=== PATIENT | female | born 1985 | race Asian ===

== ENCOUNTER 2022-02-13 10:22 | Observation (INO) | payer OTHER ==
[~2022-02-13] VITALS: Ht 165.1 cm; Wt 73.5 kg
== END 2022-02-13 15:15 | disposition home or self-care (01) ==
LOC: SPU 10:22
PROVIDERS: ADMIT Specialist; ATTEND Specialist
DX: O36.8330 Maternal care for abnormalities of the fetal heart rate or rhythm, third trimester, not applicable or unspecified (principal); O40.3XX0 Polyhydramnios, third trimester, not applicable or unspecified; Z3A.39 39 weeks gestation of pregnancy
CPT/HCPCS: 59025; G0378

== ENCOUNTER 2022-02-25 09:48 | Inpatient (IN) | payer OTHER ==
[~2022-02-25] VITALS: Ht 165.1 cm; Wt 63.5 kg
[~2022-02-25 09:48] MED LIST: PERC10 PO
[2022-02-25 09:58] VITALS: BP_SYST 159
--- NOTE | 2022-02-25 09:58 | NUR ---
Patient to ER bed 8 for evaluation. Side rails up. Report given to Alexandria LINO.
--- NOTE | 2022-02-25 09:59 | NUR ---
Pt placed on 2 L nasal cannula; oxygenation improving.
--- NOTE | 2022-02-25 10:30 | NUR ---
LATE ENTRY: PT COMES TO ER, BROUGHT IN BY FROM HOME FOR C/O INCREASINGLY WORSE SOB X 1 DAY. PT REPORTS BEING POST 7 DAYS, 1ST BABY GIRL-NORMAL VAGINAL CHILDBIRTH WITH NO COMPLICATIONS. G1-P1. PT SLIGHTLY TACHYPNIC AT 26 BREATHS/MIN. LS-DIMINISHED DUGLAS BASES, ON 02-2L VIA NC @96%. DENIES CP. SKIN W/D/I, DUGLAS LOWER EXTREMITIES WITH 3+ PITTING EDEMA.
--- NOTE | 2022-02-25 10:32 | NUR ---
DR KEEN IN ROOM FOR EXAM
[2022-02-25] MEDS ORDERED: NACL 0.9% 2,000 ML IV ONE (10:45)
[2022-02-25] MEDS ORDERED: cefTRIAXone 1 GM IVPB PREMIX 50 ML IV ONE (10:45)
[2022-02-25 11:04] LABS: BASOPHILS # (AUTO) 0.1 K/uL (0.0-0.2); BASOPHILS % (AUTO) 0.5 % (0.0-2.0); EOSINOPHILS # (AUTO) 0.1 K/uL (0.0-0.4); EOSINOPHILS % (AUTO) 0.4 % (0.0-4.0); LYMPHOCYTES # (AUTO) 0.8 K/uL (1.0-5.5); MEAN CORPUSCULAR HEMOGLOBIN 27 pg (27-31); MEAN CORPUSCULAR HGB CONC 33 % (32-36); MEAN CORPUSCULAR VOLUME 82 fL (79.0-98.0); MONOCYTES # (AUTO) 0.7 K/uL (0.0-1.0); MONOCYTES % (AUTO) 5.2 % (1.7-9.3); NEUTROPHILS # (AUTO) 11.6 K/uL (1.8-7.7); NEUTROPHILS % (AUTO) 87.9 % (40.0-70.0); PLATELET COUNT (AUTO) 329 K/uL (130-430); RED BLOOD CELL COUNT(AUTO) 2.55 MIL/uL (4.2-6.2); WHITE BLOOD COUNT (AUTO) 13.2 K/uL (4.8-10.8)
[2022-02-25 11:12] LABS: HEMATOCRIT 20.9 % (36-48)
[2022-02-25 11:17] LABS: ALBUMIN 2.3 g/dL (3.4-4.8); CALCIUM 8.2 mg/dL (8.4-11.0); CREATININE 0.73 mg/dL (0.55-1.30); TOTAL BILIRUBIN 0.6 mg/dL (0.0-1.0)
--- NOTE | 2022-02-25 11:36 | NUR ---
PT TO CT SCAN VIA [facility]
--- NOTE | 2022-02-25 12:01 | NUR ---
PT'S AT BEDSIDE. PT DRINKING FLUIDS WELL. IV ANTIBIOTICS INFUSING WELL VIA PUMP.
[2022-02-25] MEDS ORDERED: ENALAPRILAT DIHYDRATE 1.25 MG/ML VIAL IVP ONE (12:15)
[2022-02-25] MEDS ORDERED: FER300L PO (12:57)
[2022-02-25] MEDS ORDERED: CEPH250C PO (12:57)
[2022-02-25] MEDS ORDERED: DOCU-144 PO (12:57)
--- NOTE | 2022-02-25 14:26 | NUR ---
PT RESTING WITH EYES CLOSED, IN NAD. VSS.
[2022-02-25] MEDS ORDERED: ACETAMINOPHEN 325 MG TABLET PO PRN (14:45)
[2022-02-25] MEDS ORDERED: DOCUSATE SODIUM 100 MG CAPSULE PO PRN (14:45)
[2022-02-25] MEDS ORDERED: ONDANSETRON HCL 4 MG/2 ML VIAL IVP PRN (14:45)
[2022-02-25] MEDS ORDERED: MUPIROCIN 2% TOPICAL OINTMENT 22 GM NS PRN (14:45)
[2022-02-25] MEDS ORDERED: MORPHINE 2 MG/ML INJ. SYRINGE IVP PRN ×2 (14:45)
[2022-02-25] MEDS ORDERED: MAGNESIUM SULFATE 50 ML IV PRN (14:45)
[2022-02-25] MEDS ORDERED: ZOLPIDEM TARTRATE 5 MG TABLET PO PRN (14:45)
[2022-02-25] MEDS ORDERED: NACL 0.9% 1,000 ML IV SCH (14:45)
[2022-02-25] MEDS ORDERED: HYDROCHLOROTHIAZIDE 25 MG TABLET (HCTZ) PO ONE (15:00)
--- NOTE | 2022-02-25 16:24 | NUR ---
PT SITTING UP IN BED, IN NAD. FOOD AND FLUIDS OFFERED, REFUSES AT THIS TIME.
--- NOTE | 2022-02-25 18:34 | NUR ---
REPORT GIVEN TO ANÍBAL LINO, UPDATED ON VITALS, STATUS, PT STABLE FOR TRANSFER.
[2022-02-25] MEDS: MICAFUNGIN SODIUM 100 MG in NS 100 ML IV SCH (19:00)
--- NOTE | 2022-02-25 19:05 | NUR ---
Patient will be admitted to care of DR SALAZAR. Admitted to unit. Will go to room . Belongings list completed. Complete and up to date summary report printed. SBAR report to be given at bedside with opportunity for questions.
--- NOTE | 2022-02-25 19:24 | NUR ---
OPENING NOTE: Received patient stable, alert. oriented, verbally responsive. Will endorse to concrete conveyor operator nurse.
[2022-02-25 20:00] VITALS: BP_SYST 145
[2022-02-25] MEDS: AZITHROMYCIN 500 MG in NS 250 ML IV SCH ×2 (20:00→23:31)
[2022-02-25] MEDS ORDERED: METOPROLOL TARTRATE 25 MG TABLET PO SCH (21:00)
[2022-02-25] MEDS ORDERED: AZITHROMYCIN 500 MG/VIAL (ZITHROMAX) IV ONE (21:22)
[2022-02-25 22:30] LABS: TOTAL IRON BIND. CAPACITY 202 ug/dL (250-450)
--- NOTE | 2022-02-25 23:03 | NUR ---
GAVE REQUEST FOR MICAFUNGIN AND ZITHROMAX (BOTH IVPB) TO TWO STAFF W PHARM ACCESS. BOTH UNABLE TO RETURN MEDS.
[2022-02-25] MEDS: DOCUSATE SODIUM 100 MG CAPSULE PO SCH (23:32)
[2022-02-26] VITALS (13 sets, daily range): BP systolic 102–159
--- NOTE | 2022-02-26 01:59 | NUR ---
CONSULTATION PAGED/CALLED Reason for Consultation: PLEURAL EFFUSION Person Who was Notified: ZOEY Consulting Physician: RUCHI Warper Tender Specialty: Ordering Physician: SHERRY
--- NOTE | 2022-02-26 02:01 | NUR ---
CONSULTATION PAGED/CALLED Reason for Consultation: PLeural EFFUSION Person Who was Notified:BILLIE Consulting Physician: TEMO Real Estate Management Specialist Specialty: Ordering Physician: SHERRY
--- NOTE | 2022-02-26 08:10 | NUR ---
RN OPENING NOTE REPORT WAS ENDORSED BY NIGHT NURSE. PATIENT IS AWAKE AND ALERT SITTING UP IN BED. PATIENT SHOWS NO SIGNS OF ANY DISTRESS, BREATHING IS EQUAL AND NON LABORED, IN BED. PATIENT AND SPOUSE EDUCATED NUTRITION DIRECTOR LIGHT FOR ASSISTANCE. CALL LIGHT IS WITH HER.
[2022-02-26] MEDS ORDERED: FUROSEMIDE 40 MG/4 ML VIAL IVP ONE (08:30)
[2022-02-26] MEDS: DOCUSATE SODIUM 100 MG CAPSULE PO SCH ×2 (08:40→20:34)
[2022-02-26] MEDS: FERROUS SULFATE 300 MG/5 ML UDC PO SCH ×2 (08:42→20:35)
--- NOTE | 2022-02-26 08:50 | NUR ---
medication patients scheduled medication given per order. patient is awake and alert sitting up in bed. no signs of any distress, patient is on nasal cannula 2l is at bedside. educated operations analyst light for assistance. no other needs at this time.
[2022-02-26 08:55] LABS: BASOPHILS % (AUTO) 0.4 % (0.0-2.0); EOSINOPHILS # (AUTO) 0.2 K/uL (0.0-0.4); EOSINOPHILS % (AUTO) 1.1 % (0.0-4.0); HEMATOCRIT 22.6 % (36-48); HEMOGLOBIN 7.5 g/dL (12.0-16.0); LYMPHOCYTES # (AUTO) 0.8 K/uL (1.0-5.5); LYMPHOCYTES % (AUTO) 5.6 % (20.5-51.5); MEAN CORPUSCULAR HEMOGLOBIN 27 pg (27-31); MEAN CORPUSCULAR HGB CONC 33 % (32-36); MEAN CORPUSCULAR VOLUME 82 fL (79.0-98.0); MONOCYTES # (AUTO) 0.7 K/uL (0.0-1.0); NEUTROPHILS # (AUTO) 12.2 K/uL (1.8-7.7); NEUTROPHILS % (AUTO) 87.9 % (40.0-70.0); PLATELET COUNT (AUTO) 450 K/uL (130-430); RED BLOOD CELL COUNT(AUTO) 2.76 MIL/uL (4.2-6.2); RED CELL DISTRIBUTION WIDTH 15.1 % (9.0-15.0); WHITE BLOOD COUNT (AUTO) 13.9 K/uL (4.8-10.8)
[2022-02-26 08:56] LABS: CALCIUM 8.4 mg/dL (8.4-11.0); CREATININE 0.68 mg/dL (0.55-1.30); POTASSIUM 3.3 mmol/L (3.5-5.1)
[2022-02-26] MEDS ORDERED: FERROUS SULFATE 300 MG/5 ML UDC PO SCH (09:00)
[2022-02-26 09:02] LABS: ALBUMIN 2.2 g/dL (3.4-4.8); TOTAL BILIRUBIN 0.4 mg/dL (0.0-1.0)
--- NOTE | 2022-02-26 09:04 | NUR ---
CONSULTATION PAGED/CALLED Reason for Consultation: [] POST Person Who was Notified: [] DR HE Consulting Physician: [] DR Jt HE Railroader Specialty: [] OBGYN Ordering Physician: [] DR POWELL
[2022-02-26] MEDS ORDERED: DIATR MEGLU/DIATRIZ SOD 30 ML SOLUTION PO ONE (09:12)
[2022-02-26] MEDS ORDERED: iohexoL 350 mgI/mL, 100 ML INFUS..BTL IV ONE (11:46)
--- NOTE | 2022-02-26 12:20 | NUR ---
transfer to icu report was endorsed to ICU nurse. patient transferred to ICU 7 on nasal cannula at 2 liters. all belongings are with her. is at bed side and aware of transfer. Dr. cardoza was at bed orders to stop IV fluid, stop ct scan. transfer orders to be placed by him. patient has no other needs at this time.
[2022-02-26] MEDS: FUROSEMIDE 40 MG/4 ML VIAL IVP SCH ×3 (13:10→23:53)
[2022-02-26] MEDS: CARVEDILOL 12.5 MG TABLET (COREG) PO SCH ×2 (13:11→20:35)
--- NOTE | 2022-02-26 14:37 | NUR ---
Patient referred to [facility] [phone] /FAX [phone] the request of Dr Hennessy. Accepting MD Dr Dipak Campo and accepting hospitalist Dr Nicki Bahena [phone] . Patient also referred to [facility] [phone]/FAX [phone] at the request of Dr Hennessy. Accepting MD Elida Alfaro.
[2022-02-26] MEDS: POTASSIUM CHLORIDE 20 MEQ TAB.PRT.SR PO PRN (15:12)
[2022-02-26] MEDS: cefTRIAXone 1 GM in D5W 50 ML IV SCH (15:13)
[2022-02-26 16:31] LABS: C-REACTIVE PROTEIN QUANT 17.4 mg/dL (0-0.5)
--- NOTE | 2022-02-26 17:08 | NUR ---
[id number] KLINE OF TROP 144, NO NEW ORDERS RECEIVED
[2022-02-26] MEDS: MICAFUNGIN SODIUM 100 MG in NS 100 ML IV SCH (18:19)
[2022-02-26] MEDS: AZITHROMYCIN 500 MG in NS 250 ML IV SCH (20:34)
[2022-02-27] VITALS (17 sets, daily range): BP systolic 88–118
--- NOTE | 2022-02-27 00:30 | NUR ---
[facility] transfer center called spoke to Isamar and updated her regarding patients condition, as of the moment no bed available yet, will call follow up again in am if bed is ready.
--- NOTE | 2022-02-27 06:30 | NUR ---
IS given and instructed patient to used as often as she can was avail to reach 1000ml with good results remains on 2L NC. still tachypneic RR-21-30 sats,95-97%
[2022-02-27] MEDS: FUROSEMIDE 40 MG/4 ML VIAL IVP SCH ×2 (06:51→18:43)
[2022-02-27 07:43] LABS: HEMATOCRIT 22.1 % (36-48); HEMOGLOBIN 7.4 g/dL (12.0-16.0); MEAN CORPUSCULAR HEMOGLOBIN 27 pg (27-31); MEAN CORPUSCULAR HGB CONC 33 % (32-36); MEAN CORPUSCULAR VOLUME 81 fL (79.0-98.0); PLATELET COUNT (AUTO) 460 K/uL (130-430); RED BLOOD CELL COUNT(AUTO) 2.72 MIL/uL (4.2-6.2); RED CELL DISTRIBUTION WIDTH 14.9 % (9.0-15.0); WHITE BLOOD COUNT (AUTO) 11.4 K/uL (4.8-10.8)
[2022-02-27 08:01] LABS: CREATININE 0.86 mg/dL (0.55-1.30); POTASSIUM 3.2 mmol/L (3.5-5.1)
[2022-02-27 08:06] LABS: FOLATE (FOLIC ACID) 16.2 ng/mL (>3.0)
[2022-02-27] MEDS: FERROUS SULFATE 300 MG/5 ML UDC PO SCH ×2 (09:49→20:47)
[2022-02-27] MEDS: CARVEDILOL 12.5 MG TABLET (COREG) PO SCH ×2 (09:51→20:47)
[2022-02-27] MEDS: SPIRONOLACTONE 25 MG TABLET (ALDACTONE) PO SCH ×2 (09:52→20:47)
[2022-02-27] MEDS: DOCUSATE SODIUM 100 MG CAPSULE PO SCH ×2 (09:52→20:47)
[2022-02-27] MEDS: POTASSIUM CHLORIDE 20 MEQ TAB.PRT.SR PO PRN (11:23)
[2022-02-27] MEDS: cefTRIAXone 1 GM in D5W 50 ML IV SCH (12:30)
--- NOTE | 2022-02-27 14:15 | NUR ---
0800- VSS, EDUCATION PROVIDED ON POC. 1200- PT TOLERATED PO MEDICATION WELL, ALL QUESTIONS ANSWERED 1415- TRANSFERRED TO 103A
--- NOTE | 2022-02-27 14:21 | NUR ---
PER REPORT FROM NILES LINO. PT REQUESTING FOR IBUPROFEN 600 MG Q6H PRN FOR PAIN. ORDERS RECEIVED.
[2022-02-27] MEDS ORDERED: IBUPROFEN 600 MG TABLET PO PRN (14:30)
[2022-02-27 14:48] LABS: BAND % (MANUAL) 1 % (0-6); BASOPHILS % (MANUAL) 0 % (0-2); EOSINOPHILS % (MANUAL) 1 % (0-7); LYMPHOCYTES % (MANUAL) 12 % (20-46); METAMYELOCYTES % 1 % (0-0); MONOCYTES % (MANUAL) 7 % (0-11)
[2022-02-27] MEDS: MICAFUNGIN SODIUM 100 MG in NS 100 ML IV SCH (18:44)
--- NOTE | 2022-02-27 18:45 | NUR ---
1700- REPORTED LABS TO DR SANCHEZ. NO NEW ORDERS, NEXT LABS TOMORROW.NO POTASSIUM OR MAG REPLACEMENT AFTER THIS REPORT. CREATININE 2.41 FROM 2.53. WILL MONITOR. 1700- MIRALAX GIVEN PO. NO BM IN PAST 5DAYS. ENCOURAGING PO INTAKE TOLERATED. 1800- TOTAL UOP ON SHIFT 880CC. CALLED DR SANCHEZ AND ASKED ABOUT ADDITIONAL ORDERS FOR 25% ALBUMIN ON EMAR. POC IS TO NOT GIVE THESE ADDITIONAL DOSES OF ALBUMIN SINCE PATIENT RECEIVED 200CC OF 25% ALBUMIN TODAY. CLARIFIED ORDERS FOR URINE SODIUM AND URINE CREATININE, WILL D/C 24 URINE CLEARANCE. PATIENT W POOR APPETITE. ORDERED SOUP FOR HIM 184- NO SOUP AVAILABLE, PATIENT HAVING JELLO AT THIS TIME.
[2022-02-27] MEDS: AZITHROMYCIN 500 MG in NS 250 ML IV SCH (20:46)
[2022-02-28] VITALS: BP_SYST 105
[2022-02-28] MEDS: FUROSEMIDE 40 MG/4 ML VIAL IVP SCH ×2 (06:16→18:31)
[2022-02-28 06:36] LABS: BASOPHILS # (AUTO) 0.1 K/uL (0.0-0.2); BASOPHILS % (AUTO) 0.5 % (0.0-2.0); EOSINOPHILS # (AUTO) 0.3 K/uL (0.0-0.4); EOSINOPHILS % (AUTO) 2.5 % (0.0-4.0); HEMATOCRIT 22.3 % (36-48); HEMOGLOBIN 7.4 g/dL (12.0-16.0); LYMPHOCYTES % (AUTO) 15.6 % (20.5-51.5); MEAN CORPUSCULAR HEMOGLOBIN 27 pg (27-31); MEAN CORPUSCULAR HGB CONC 33 % (32-36); MEAN CORPUSCULAR VOLUME 82 fL (79.0-98.0); MONOCYTES # (AUTO) 1.1 K/uL (0.0-1.0); MONOCYTES % (AUTO) 8.3 % (1.7-9.3); NEUTROPHILS # (AUTO) 9.3 K/uL (1.8-7.7); NEUTROPHILS % (AUTO) 73.1 % (40.0-70.0); PLATELET COUNT (AUTO) 527 K/uL (130-430); RED BLOOD CELL COUNT(AUTO) 2.73 MIL/uL (4.2-6.2); RED CELL DISTRIBUTION WIDTH 15.1 % (9.0-15.0)
[2022-02-28 06:52] LABS: INR 0.9 (0.8-1.2); PROTHROMBIN TIME 9.6 SECS (9.5-12.5)
[2022-02-28 07:07] LABS: ALBUMIN 2.2 g/dL (3.4-4.8); CALCIUM 8.3 mg/dL (8.4-11.0); CREATININE 0.74 mg/dL (0.55-1.30); POTASSIUM 3.5 mmol/L (3.5-5.1); TOTAL BILIRUBIN 0.3 mg/dL (0.0-1.0)
--- NOTE | 2022-02-28 08:15 | NUR ---
INITIAL ROUNDS Received pt AAOx4, no s/s resp distress, no c/o pain or discomfort. Plan of care for the day reviewed with pt-pt verbalized her understanding. Pain management, disease process, skin and safety discussed-teach back done. Dr. Leblanc now at bedside. Call light within reach.
[2022-02-28 09:06] VITALS: BP_SYST 128
[2022-02-28] MEDS: CARVEDILOL 12.5 MG TABLET (COREG) PO SCH ×2 (09:39→21:37)
[2022-02-28] MEDS: FERROUS SULFATE 300 MG/5 ML UDC PO SCH ×2 (09:39→21:37)
[2022-02-28] MEDS: DOCUSATE SODIUM 100 MG CAPSULE PO SCH ×2 (09:39→21:36)
[2022-02-28] MEDS: SPIRONOLACTONE 25 MG TABLET (ALDACTONE) PO SCH ×2 (09:39→21:37)
[2022-02-28] MEDS: cefTRIAXone 1 GM in D5W 50 ML IV SCH (11:53)
[2022-02-28 13:02] LABS: WHITE BLOOD COUNT (AUTO) 12.7 K/uL (4.8-10.8)
--- NOTE | 2022-02-28 18:35 | NUR ---
ROUNDS PATIENT IN BED, VITALS STABLE, DENIES BOB AT THIS TIME. FAMILY MEMBERS AT THE BEDSIDE. ASSESSMENT ROLLE AND DOCUMENTED. SEE FLOWSHEET. NEEDS ATTENDED TO. CALL LIGHT PLACED WITHIN REACH.
--- NOTE | 2022-02-28 19:05 | NUR ---
CLOSING NOTE Pt sitting up in bed visiting with her mother. No s/s resp distress, no c/o pain or discomfort. Patient given cup of ice per request, needs met, call light within reach.
[2022-02-28 20:00] VITALS: BP_SYST 113
[2022-03-01] VITALS: BP_SYST 117
--- NOTE | 2022-03-01 00:17 | NUR ---
PATIENT RESTING: Patient resting quietly. No acute distress noted. Vital signs within normal range.
[2022-03-01] MEDS: FUROSEMIDE 40 MG/4 ML VIAL IVP SCH (06:39)
[2022-03-01 06:50] LABS: BASOPHILS % (AUTO) 0.3 % (0.0-2.0); EOSINOPHILS # (AUTO) 0.4 K/uL (0.0-0.4); EOSINOPHILS % (AUTO) 3.3 % (0.0-4.0); HEMATOCRIT 23.2 % (36-48); HEMOGLOBIN 7.7 g/dL (12.0-16.0); LYMPHOCYTES # (AUTO) 2.5 K/uL (1.0-5.5); MEAN CORPUSCULAR HEMOGLOBIN 27 pg (27-31); MEAN CORPUSCULAR HGB CONC 33 % (32-36); MEAN CORPUSCULAR VOLUME 81 fL (79.0-98.0); MONOCYTES # (AUTO) 1.1 K/uL (0.0-1.0); MONOCYTES % (AUTO) 8.3 % (1.7-9.3); NEUTROPHILS # (AUTO) 9.6 K/uL (1.8-7.7); NEUTROPHILS % (AUTO) 70.1 % (40.0-70.0); PLATELET COUNT (AUTO) 614 K/uL (130-430); RED BLOOD CELL COUNT(AUTO) 2.87 MIL/uL (4.2-6.2); RED CELL DISTRIBUTION WIDTH 15.1 % (9.0-15.0); WHITE BLOOD COUNT (AUTO) 13.7 K/uL (4.8-10.8)
[2022-03-01 06:54] LABS: CALCIUM 8.7 mg/dL (8.4-11.0); CREATININE 0.85 mg/dL (0.55-1.30); POTASSIUM 3.9 mmol/L (3.5-5.1)
--- NOTE | 2022-03-01 06:55 | NUR ---
CLOSING NOTES PATIENT AWAKE, NO COMPLAINTS AT THIS TIME. ALL NEEDS ATTENDED TO. CALL LIGHT PLACED WITHIN REACH.
--- NOTE | 2022-03-01 07:15 | NUR ---
received report from endorsing night guard RN for continuation of care, patient lying on bed, no signs of acute distress noted at this time, checked patient vital signs blood pressure 110/66. heart rate 83 , oxygen saturation 97, temperature 97.4. will continue to monitor.
[2022-03-01 08:00] VITALS: BP_SYST 119
[2022-03-01] MEDS: CARVEDILOL 12.5 MG TABLET (COREG) PO SCH ×2 (09:00→20:42)
[2022-03-01] MEDS: DOCUSATE SODIUM 100 MG CAPSULE PO SCH ×2 (09:33→20:40)
[2022-03-01] MEDS: FERROUS SULFATE 300 MG/5 ML UDC PO SCH ×2 (09:33→20:38)
[2022-03-01] MEDS: SPIRONOLACTONE 25 MG TABLET (ALDACTONE) PO SCH ×2 (09:34→20:40)
[2022-03-01] MEDS: cefTRIAXone 1 GM in D5W 50 ML IV SCH (11:21)
[2022-03-01 12:00] VITALS: BP_SYST 90
[2022-03-01 15:06] LABS: CRYPTOCOCCUS AG, SERUM Negative (Negative)
--- NOTE | 2022-03-01 15:31 | NUR ---
Dietitian Recommendations * Continue w/ current Cardiac diet Please refer to Nutrition Assessment for details. CRYSTAL DENNEY Addendum: 03/01/22 at [address] Amended: Links added.
[2022-03-01 16:00] VITALS: BP_SYST 113
[2022-03-01 20:00] VITALS: BP_SYST 100
[2022-03-02 06:12] LABS: BASOPHILS # (AUTO) 0.1 K/uL (0.0-0.2); BASOPHILS % (AUTO) 0.6 % (0.0-2.0); EOSINOPHILS # (AUTO) 0.5 K/uL (0.0-0.4); EOSINOPHILS % (AUTO) 3.8 % (0.0-4.0); HEMATOCRIT 25.1 % (36-48); HEMOGLOBIN 8.3 g/dL (12.0-16.0); LYMPHOCYTES # (AUTO) 2.2 K/uL (1.0-5.5); LYMPHOCYTES % (AUTO) 15.3 % (20.5-51.5); MEAN CORPUSCULAR HEMOGLOBIN 27 pg (27-31); MEAN CORPUSCULAR HGB CONC 33 % (32-36); MEAN CORPUSCULAR VOLUME 81 fL (79.0-98.0); MONOCYTES # (AUTO) 1.1 K/uL (0.0-1.0); MONOCYTES % (AUTO) 7.9 % (1.7-9.3); NEUTROPHILS # (AUTO) 10.5 K/uL (1.8-7.7); NEUTROPHILS % (AUTO) 72.4 % (40.0-70.0); PLATELET COUNT (AUTO) 710 K/uL (130-430); RED BLOOD CELL COUNT(AUTO) 3.11 MIL/uL (4.2-6.2); RED CELL DISTRIBUTION WIDTH 15.1 % (9.0-15.0); WHITE BLOOD COUNT (AUTO) 14.4 K/uL (4.8-10.8)
--- NOTE | 2022-03-02 07:18 | NUR ---
received report from endorsing night shift manager RN for continuation of care, patient lying on bed, checked vital signs blood pressure 108/66, heart rate 99, oxygen saturation 99 and temperature 97.6, no signs of acute distress noted at this time, will continue to monitor.
[2022-03-02 07:45] LABS: CALCIUM 9.3 mg/dL (8.4-11.0); CREATININE 0.74 mg/dL (0.55-1.30); POTASSIUM 3.9 mmol/L (3.5-5.1)
[2022-03-02 08:00] VITALS: BP_SYST 108
[2022-03-02] MEDS: DOCUSATE SODIUM 100 MG CAPSULE PO SCH (08:46)
[2022-03-02] MEDS: FERROUS SULFATE 300 MG/5 ML UDC PO SCH (08:46)
[2022-03-02] MEDS: SPIRONOLACTONE 25 MG TABLET (ALDACTONE) PO SCH (08:48)
[2022-03-02] MEDS: CARVEDILOL 12.5 MG TABLET (COREG) PO SCH (08:49)
[2022-03-02] MEDS ORDERED: FUROSEMIDE 40 MG TABLET PO SCH (09:00)
--- NOTE | 2022-03-02 09:54 | NUR ---
received a call from [facility] and spoked to Syed, that there is available bed, informed and dependency case manager
[2022-03-02] MEDS ORDERED: FURO-150 PO (10:05)
[2022-03-02] MEDS ORDERED: METO25TA6 PO (10:05)
[2022-03-02] MEDS: cefTRIAXone 1 GM in D5W 50 ML IV SCH (10:42)
[2022-03-02 11:39] VITALS: BP_SYST 108
--- NOTE | 2022-03-02 14:30 | NUR ---
D/C Patient Patient given medication reconciliation form and D/C instructions. Exit Care provided. Patient verbalized understanding. MD discussed with patient the results and treatment provided. Ambulatory with steady gait for discharge to home. Patient in stable condition, ID band removed. IV catheter removed, intact and dressing applied, no active bleeding. no signs of acute distress, no complain of pain. Patient educated on pain management. All belongings sent with patient.accompanied by Ronnie,advised to follow up with primary care provider and clipper operator.
== END 2022-03-02 14:30 | disposition home or self-care (01) | DRG 871 ==
LOC: SED 09:48 → SMU 13:36 → STU 21:09 → SMU 23:26 → SIC 02-26 09:37 → STU 02-27 15:46
PROVIDERS: ADMIT General Practice; ATTEND General Practice
DX: A41.9 Sepsis, unspecified organism (principal); J18.9 Pneumonia, unspecified organism; J96.01 Acute respiratory failure with hypoxia; E87.2 Acidosis; E44.0 Moderate protein-calorie malnutrition; J90 Pleural effusion, not elsewhere classified; Z20.822 Contact with and (suspected) exposure to COVID-19; R74.01 Elevation of levels of liver transaminase levels; E87.6 Hypokalemia; N61.0 Mastitis without abscess; D50.0 Iron deficiency anemia secondary to blood loss (chronic); I10 Essential (primary) hypertension; Z80.6 Family history of leukemia; Z68.23 Body mass index [BMI] 23.0-23.9, adult
CPT/HCPCS: 36415; 36600; 71045; 71046-TC; 71250-TC; 76376; 80048; 80053; 82607; 82728; 82746; 82803-TC; 83036; 83540; 83550; 83605; 83735; 83880; 84484; 85007; 85025; 85027; 85379; 85610-TC; 85651-TC; 86140; 86480; 86635; 86738; 87040; 87899; 93005; 93306; 96365; 96368; 99291; G0378; J0456; J0696; J1940; J1956; J2248; J3475; J7050; J7060; Q9964; Q9967

== ENCOUNTER 2022-09-01 11:00 | Outpatient (CLI) | payer OTHER ==
[~2022-09-01 11:00] MED LIST changes: +CEPH250C PO; +DOCU-144 PO; +FER300L PO; +FURO-150 PO; +METO25TA6 PO
== END 2022-09-01 20:37 | disposition home or self-care (01) ==
LOC: SMI 11:00
PROVIDERS: ATTEND Specialist
DX: N85.2 Hypertrophy of uterus (principal)
CPT/HCPCS: 72195